=== PATIENT | male | born 1985 | race Caucasian/White ===

== ENCOUNTER 2020-08-13 06:49 | Day surgery (SDC) | payer MEDICAID ==
[~2020-08-13 06:49] MED LIST: Lactated Ringers 1,000 ML IV SCH; Sodium Chloride 0.9% 10 ML Syringe FLUSH PRN
[2020-08-13] MEDS ORDERED: Ondansetron 4 MG/2 ML SDV IVPUSH ONE (06:50)
[2020-08-13] MEDS ORDERED: Propofol 200 MG/20 ML SDV IV ONE (06:50)
[2020-08-13] MEDS ORDERED: Midazolam 1 MG/ML 2 ML SDV IV ONE (06:50)
[2020-08-13] MEDS ORDERED: Rocuronium 50 MG/5 ML Vial IV ONE (06:50)
[2020-08-13] MEDS ORDERED: Ketorolac 30 MG/ML SDV IVPUSH ONE (06:50)
[2020-08-13] MEDS ORDERED: Glycopyrrolate 0.2 MG/ML 5 ML MDV IV ONE (06:50)
[2020-08-13] MEDS ORDERED: fentaNYL 100 MCG/2 ML SDV IV ONE (06:50)
[2020-08-13] MEDS ORDERED: HYDROmorphone 2 MG/ML SDV IV ONE (06:50)
--- NOTE | 2020-08-13 07:58 | PCM.HP.2 ---
H&P History of Present Illness - General Date of Service: 08/13/20 Admit Problem/Dx: Admission Diagnosis/Problem Admission Diagnosis/Problem Hernia Source of Information: Patient - History of Present Illness Initial Comments - Free Text/Narative: 34 yo wm who was seen for 03 Jul 2020 for an umbilical hernia. No presents for repair. It does cause some discomfort. No obstructive sx. - Related Data Allergies/Adverse Reactions: Allergies Allergy/AdvReac Type Severity Reaction Status Date / Time No Known Allergies Allergy Verified 08/13/20 07:28 Home Medications: Home Meds Colchicine 0.6 mg PO ASDIRECTED 08/09/20 [History] Indomethacin 50 mg PO TID 08/09/20 [History] allopurinoL [Zyloprim] 300 mg PO DAILY 08/09/20 [History] Past Medical History - Past Health History Medical/Surgical History: Denies Medical/Surgical History HEENT History: Reports: None Cardiovascular History: Reports: None Respiratory History: Reports: None Gastrointestinal History: Reports: None Genitourinary History: Reports: None Musculoskeletal History: Reports: Gout Neurological History: Reports: None Psychiatric History: Reports: None Endocrine/Metabolic History: Reports: Obesity/BMI 30+ Hematologic History: Reports: None Immunologic History: Reports: None Oncologic (Cancer) History: Reports: None Dermatologic History: Reports: None - Past Surgical History Head Surgeries/Procedures: Reports: None HEENT Surgical History: Reports: None Cardiovascular Surgical History: Reports: None Respiratory Surgical History: Reports: None GI Surgical History: Reports: None Male Surgical History: Reports: None Endocrine Surgical History: Reports: None Neurological Surgical History: Reports: None Musculoskeletal Surgical History: Reports: None Oncologic Surgical History: Reports: None Dermatological Surgical History: Reports: None Social & Family History - Family History Family Medical History: No Pertinent Family History - Tobacco Use Tobacco Use Status *Q: Former Tobacco User Years of Tobacco use: 3 Packs/Tins Daily: 0.2 Second Hand Smoke Exposure: Yes - Caffeine Use Caffeine Use: Reports: Soda - Recreational Drug Use Recreational Drug Use: No H&P Review of Systems - Review of Systems: Review Of Systems: See Below General: Reports: No Symptoms HEENT: Reports: No Symptoms Pulmonary: Reports: No Symptoms Cardiovascular: Reports: No Symptoms Gastrointestinal: Reports: No Symptoms Skin: Reports: No Symptoms Exam - Exam Exam: See Below - Vital Signs Vital Signs: Last Vital Signs Temp 97.7 F 08/13/20 07:00 Pulse 61 08/13/20 07:00 Resp 16 08/13/20 07:00 BP 150/75 H 08/13/20 07:00 Pulse Ox 99 08/13/20 07:00 Weight: 163.747 kg - Exam General: Alert, Oriented, Cooperative HEENT: Other (NCAT) Lungs: Clear to Auscultation, Normal Respiratory Effort Cardiovascular: Regular Rate, Regular Rhythm GI/Abdominal Exam: Normal Bowel Sounds, Soft, Non-Tender, Hernia (umbilical ) Rectal (Males) Exam: Deferred Back Exam: Normal Inspection Sepsis Event Note - Focused Exam Vital Signs: Vital Signs Temp Pulse Resp BP Pulse Ox 08/13/20 07:00 97.7 F 61 16 150/75 H 99 *Q Meaningful Use (ADM) - VTE *Q VTE Pharmacological Contraindications *Q: Patient Scheduled Surgery - Problem List (1) Umbilical hernia without obstruction and without gangrene SNOMED Code(s): 064438769 ICD Code: K42.9 - UMBILICAL HERNIA WITHOUT OBSTRUCTION OR GANGRENE Status: Acute Current Visit: Yes Problem List Initiated/Reviewed/Updated: Yes Orders Last 24hrs: Active Orders 24 hr Category Date Time Status Patient Status [ADT] Routine ADT 08/13/20 06:45 Ordered Patient to Empty Bladder [RC] ASDIRECTED Care 08/13/20 06:45 Active RT Incentive Spirometry [RC] ASDIRECTED Care 08/13/20 06:45 Active Verify Patient Consent Obtain [RC] ASDIRECTED Care 08/13/20 06:45 Active Nothing Per Oral Diet [DIET] Diet 08/13/20 Breakfast Ordered Lactated Ringers [Ringers, Lactated] 1,000 ml Med 08/13/20 06:45 Active IV ASDIRECTED Sodium Chloride 0.9% [Saline Flush] Med 08/13/20 06:45 Active 10 ml FLUSH ASDIRECTED PRN ceFAZolin [Ancef] 3 gm Med 08/13/20 08:00 Active Sodium Chloride 0.9% [Normal Saline] 100 ml IV ONETIME Peripheral IV Insertion Adult [OM.PC] Routine Oth 08/13/20 06:45 Ordered Sequential Compression Device [OM.PC] Routine Oth 08/13/20 06:45 Ordered Medication Orders Lactated Ringer's (Ringers, Lactated) 1,000 mls @ 125 mls/hr IV ASDIRECTED MARK Last Admin: 08/13/20 07:20 Dose: 125 mls/hr Documented by: ANTOINE Cefazolin Sodium 3 gm/ Sodium (Chloride) 100 mls @ 200 mls/hr IV ONETIME ONE Stop: 08/13/20 08:29 Sodium Chloride (Saline Flush) 10 ml FLUSH ASDIRECTED PRN PRN Reason: Keep Vein Open Assessment/Plan Comment:: No change since H+P of 03 Jul 2020. Umbilical hernia repair with mesh planned. Risks again reviewed see my [facility] note. No questions. - Mortality Measure Prognosis:: Good
[2020-08-13] MEDS ORDERED: Bupivacaine 0.5% 30 ML SDV INJECT ONE (08:17)
[2020-08-13] MEDS ORDERED: Lidocaine 1% with EPINEPHrine 1:100,000 20 ML MDV INJECT ONE (08:17)
--- NOTE | 2020-08-13 08:57 | PCM.OPNOTE ---
- General Post-Op/Procedure Note Date of Surgery/Procedure: 08/13/20 Operative Procedure(s): umbilical hernia repair with mesh Findings: 2.5 cm umbilical hernia Pre Op Diagnosis: umbilical hernia without obstruction or gangrene Post-Op Diagnosis: Same Anesthesia Technique: General LMA, Local (6 ml 1 % lido with epi/0.5%buvipicaine s) Primary Surgeon: Uriel Singh Anesthesia Provider: Guanako Ortiz Pathology: none Complications: None Condition: Good Free Text/Narrative:: see dictation [id number]
[2020-08-13] MEDS ORDERED: Acetaminophen/HYDROcodone 325-5 MG Tab PO PRN (09:06)
[2020-08-13] MEDS ORDERED: hydrALAZINE 20 MG/ML SDV IVPUSH ONE (09:10)
[2020-08-13 10:53] VITALS: BP 107/70; PULSE 88
--- NOTE | 2020-08-13 11:44 | OR ---
DATE OF OPERATION: 08/13/2020 SURGEON: Uriel Singh MD PROCEDURE PERFORMED: Umbilical hernia repair with mesh. PREOPERATIVE DIAGNOSIS: Umbilical hernia without obstruction or gangrene. POSTOPERATIVE DIAGNOSIS: Umbilical hernia without obstruction or gangrene. INDICATIONS FOR PROCEDURE: This is a 34-year-old white male referred with symptomatic umbilical hernia. He was offered and accepted repair. INTRAOPERATIVE FINDINGS: 6 mL of 1:1 mixture of 1% lidocaine with epinephrine and 0.5% bupivacaine were used for infiltration. The defect was repaired using a Ventralex ST hernia patch, reference #[id number], lot #[id number], with an expiration date of 03/27/2021. The hernia itself measured roughly about 2.5 cm. There was a small amount of incarcerated omentum, but no intestine. DESCRIPTION OF OPERATION: After an excellent general anesthetic was administered via LMA, the patient was prepped and draped in the usual sterile manner. 6 mL of 1:1 mixture of 1% lidocaine with epinephrine and 0.5% bupivacaine was used to infiltrate and create a field block around the umbilicus. A semicircular incision was then made with a #15 scalpel blade. Sharp dissection was carried out, exposing the hernia sac and the underlying fascia. The hernia sac itself was entered and transected off the umbilicus. We were able to enter the sac safely with a finger inserted into the sac, and the sac itself as well as the preperitoneal fat, which was incorporated into the sac, were transected using electrocautery. There was a small piece of omentum that, due to the size, was very difficult to reduce. Therefore, this was clamped in 2 sections, divided, and passed off the field itself. No specimen was submitted as no neoplastic process was suspected. The mesh disk was then inserted after digital palpation revealed no interfering structures or fat. The defect was then closed with a running 0 prolene, and the tails were excised from the mesh as we sewed the mesh into the patient's wound. The area was irrigated. A [id number] 0 Vicryl was used to tack the umbilicus to the anterior abdominal wall. The skin was closed with imani. Needle, sponge, and instrument counts were reported as correct. The patient was taken to recovery room in good condition. /[id number] /NANIL
== END 2020-08-13 10:49 | disposition home or self-care (01) ==
LOC: FB.SDS 06:49
PROVIDERS: ATTEND Surgery
DX: K42.9 Umbilical hernia without obstruction or gangrene (principal); E66.9 Obesity, unspecified; M10.9 Gout, unspecified; Z79.899 Other long term (current) drug therapy; Z87.891 Personal history of nicotine dependence; Z68.42 Body mass index [BMI] 45.0-49.9, adult
CPT/HCPCS: 00750-QZ; 94150; A9270-GY; C1781; J0360; J0690; J1170; J1885; J2250; J2405; J2704; J3010; J3490; J7120